=== PATIENT | female | born 1985 | race African-American/Black ===

== ENCOUNTER 2018-05-17 15:58 | Emergency (ER) | payer SELFPAY ==
[~2018-05-17] VITALS: Ht 167.6 cm; Wt 60.0 kg
[2018-05-17 16:11] VITALS: BP 120/74
== END 2018-05-17 18:18 | disposition home or self-care (01) ==
LOC: ER 15:58
DX: M54.6 Pain in thoracic spine (principal); R07.81 Pleurodynia; V43.52XA Car driver injured in collision with other type car in traffic accident, initial encounter; Y93.89 Activity, other specified; Y92.410 Unspecified street and highway as the place of occurrence of the external cause; Z88.0 Allergy status to penicillin
CPT/HCPCS: 71101; 72070; 81025; 99283